=== PATIENT | male | born 1950 | race Caucasian/White ===

== ENCOUNTER 2020-04-18 10:54 | Inpatient (IN) | payer OTHER ==
[~2020-04-18] VITALS: Ht 177.8 cm; Wt 51.8 kg
[2020-04-18 11:25] LABS: BASOPHILS ABSOLUTE AUTO 0.04 K/mm3 (0.00-0.23); BASOPHILS PERCENT AUTO 0 % (0-2); EOSINOPHILS ABSOLUTE AUTO 0.01 K/mm3 (0.00-0.68); EOSINOPHILS PERCENT AUTO 0 % (0-6); Hematocrit 41.3 % (37.0-53.0); Hemoglobin 13.9 g/dL (13.5-17.5); IMMATURE GRAN ABSOLUTE AUTO 0.05 K/mm3 (0.00-0.10); IMMATURE GRAN PERCENT AUTO 0 % (0-1); LYMPHOCYTES ABSOLUTE AUTO 1.12 K/mm3 (0.84-5.20); LYMPHOCYTES PERCENT AUTO 9 % (21-46); MONOCYTES ABSOLUTE AUTO 1.34 K/mm3 (0.16-1.47); MONOCYTES PERCENT AUTO 11 % (4-13); Mean Corpuscular HGB 29.4 pg (26.0-34.0); Mean Corpuscular HGB Conc 33.7 g/dL (31.5-36.5); Mean Corpuscular Volume 87 fL (80-100); Mean Platelet Volume 9.2 fL (9.1-12.4); NEUTROPHILS ABSOLUTE AUTO 9.97 K/mm3 (1.96-9.15); NEUTROPHILS PERCENT AUTO 80 % (41-73); Platelet Count 393 K/mm3 (150-400); RDW Coefficient Variation 14.6 % (11.7-14.2); RDW Standard Deviation 47.2 fL (35.1-46.3); Red Blood Cell Count 4.73 M/mm3 (4.30-5.90); White Blood Cell Count 12.53 K/mm3 (4.00-11.30)
[2020-04-18 11:50] LABS: Alanine Aminotransfer (ALT/SGP 18 U/L (12-78); Albumin, Blood 2.9 g/dL (3.4-5.0); Albumin/Globulin Ratio 0.6 (0.8-1.8); Alk Phos 98 U/L (50-136); Anion Gap 11 mmol/L (6-16); Aspartate Aminotrans (AST/SGOT 19 U/L (12-37); Bilirubin, Total 1.3 mg/dL (0.1-1.0); Blood Urea Nitrogen 17 mg/dL (8-24); Bun/Creatinine Ratio 17.7 (12.0-20.0); CO2, Blood 22 mmol/L (21-32); Chloride, Blood 98 mmol/L (98-108); Creatinine, Blood 0.96 mg/dL (0.60-1.20); Globulin, Blood 4.6 g/dL (2.2-4.0); Glomerular Filtration Rate >60 (60-); Glucose, Blood 99 mg/dL (70-99); Potassium, Blood 3.8 mmol/L (3.5-5.5); Sodium, Blood 131 mmol/L (136-145); Total Protein, Blood 7.5 g/dL (6.4-8.2); Troponin I <0.015 ng/mL (0.000-0.040)
[2020-04-18 12:03] LABS: Influenza A, PCR NEGATIVE (NEGATIVE); Influenza B, PCR NEGATIVE (NEGATIVE); Resp Syncytial Virus, PCR NEGATIVE (NEGATIVE); SARS-Cov-2 (COVID-19) PCR, MMC NEGATIVE (NEGATIVE)
[2020-04-18] MEDS ORDERED: ATOR20 PO (16:31)
[2020-04-18] MEDS ORDERED: THERA-D2000 UNIT PO (16:31)
[2020-04-18] MEDS ORDERED: ALBU90OI INH (16:31)
[2020-04-18] MEDS ORDERED: CYCL10 PO (16:32)
[2020-04-18] MEDS ORDERED: GUAI600T33 PO (16:32)
[2020-04-18] MEDS ORDERED: ENAL10 PO (16:32)
[2020-04-18] MEDS ORDERED: STIOLTO RESPIMAT4 G1 INH (16:33)
[2020-04-18] MEDS ORDERED: ASMANEX HFA13 G4 INH (16:33)
[2020-04-18] MEDS ORDERED: ASPI325 PO (16:34)
[2020-04-18] MEDS ORDERED: TAMS.4ER PO (16:34)
[2020-04-18] MEDS ORDERED: SERT25 PO (16:34)
--- NOTE | 2020-04-18 16:36 | NUR ---
ER ADMIT- PT ARRIVED TO ROOM 309 VIA GURNEY, PT SLID OVER INDEP INTO BED. PT A/OX4. PT REPORTS 5/10 ABD SIDE PAIN THAT INCREASES WITH COUGH AND INSPIRATION. LS DIMINISHED ON 4L, PT REPORTS BASELINE IS 3-4L CONTINUOUS AT HOME. HARSH MOIST NPC NOTED. TELE SR AT 85. NO EDEMA PRESENT. PT REPORTS DIFFICULTY URINATING AT BASELINE AND TAKES FLOMAX. PT ORIENTED TO ROOM AND CALL SYSTEM, CALL LIGHT INR REACH.
[2020-04-18] MEDS ORDERED: LIDOCAINE1 EACH TOP (17:24)
[2020-04-18] MEDS ORDERED: BENADRYL25 MG PO (17:28)
--- NOTE | 2020-04-18 22:00 | NUR ---
ASSUMPTION OF CARE. AOX3, STATES HE IS FEELING A LITTLE BETTER. SOB WITH EXERTION, ON 4LITERS OF O2, SATS IN THE 90%. JUST HAD BREATHING TREATMENT WHEN i ASSESSED. NO CHEST PAIN. MOIST COUGH BUT NON-PRODUCTIVE AT THIS TIME. LUNG SOUNDS DIMINISHED. NO EDEMA. POOR FLUIDS INTAKE WELL. NEED UA BUT HE HAS NOT VOIDED, VERY DEHYDRATED, SKIN TURGER POOR. ALSO AWAITING SPUTUM. IVF INFUSING WELL. URINAL AT BEDSIDE, STATES WEAK IN LEGS. TIRED ALL THE TIME. WILL CONTINUE TO MONITOR. MEDS GIVEN. CALL LIGHT IN REACH.
[2020-04-19 05:22] LABS: BASOPHILS ABSOLUTE AUTO 0.02 K/mm3 (0.00-0.23); BASOPHILS PERCENT AUTO 0 % (0-2); EOSINOPHILS PERCENT AUTO 0 % (0-6); Hematocrit 35.4 % (37.0-53.0); Hemoglobin 11.8 g/dL (13.5-17.5); IMMATURE GRAN ABSOLUTE AUTO 0.08 K/mm3 (0.00-0.10); IMMATURE GRAN PERCENT AUTO 1 % (0-1); LYMPHOCYTES ABSOLUTE AUTO 0.79 K/mm3 (0.84-5.20); LYMPHOCYTES PERCENT AUTO 9 % (21-46); MONOCYTES PERCENT AUTO 9 % (4-13); Mean Corpuscular HGB 29.3 pg (26.0-34.0); Mean Corpuscular HGB Conc 33.3 g/dL (31.5-36.5); Mean Corpuscular Volume 88 fL (80-100); Mean Platelet Volume 9.5 fL (9.1-12.4); NEUTROPHILS ABSOLUTE AUTO 6.84 K/mm3 (1.96-9.15); NEUTROPHILS PERCENT AUTO 80 % (41-73); Platelet Count 296 K/mm3 (150-400); RDW Coefficient Variation 14.8 % (11.7-14.2); Red Blood Cell Count 4.03 M/mm3 (4.30-5.90); White Blood Cell Count 8.53 K/mm3 (4.00-11.30)
[2020-04-19 05:52] LABS: Anion Gap 7 mmol/L (6-16); Blood Urea Nitrogen 16 mg/dL (8-24); Bun/Creatinine Ratio 24.1 (12.0-20.0); CO2, Blood 24 mmol/L (21-32); Calcium, Blood 8.4 mg/dL (8.5-10.1); Chloride, Blood 106 mmol/L (98-108); Creatinine, Blood 0.67 mg/dL (0.60-1.20); Glomerular Filtration Rate >60 (60-); Glucose, Blood 140 mg/dL (70-99); Potassium, Blood 3.7 mmol/L (3.5-5.5); Sodium, Blood 137 mmol/L (136-145)
--- NOTE | 2020-04-19 05:59 | NUR ---
SHIFT SUMMARY: HERNAN HAS BEEN DOING A LITTLE BETTER. SLEPT AT START OF SHIFT AND MOST OF THE NIGHT. LUNG SOUNDS DIMINISHED, SATS >90% ON 4 LITERS. COUGH IS VERY MOIST AND PRODUCTIVE NOW. SPUTUM SENT TO THE LAB. URINE ALSO SENT TO THE LAB. SOB WITH EXERTION. URINE IS DARK YELLOW, NO ODOR. SKIN DRY. VS HAVE BEEN STABLE, AFEBRILE. IVF INFUSING ALL NIGHT. ENCOURAGED DEEP BREATHING. NO OTHER CHAGNES TO REPORT CALL LIGHT IS IN REACH.
[2020-04-19] MEDS ORDERED: ACET325 PO (13:19)
[2020-04-19] MEDS ORDERED: AZIT500 PO (13:20)
[2020-04-19] MEDS ORDERED: CEFP200 PO (13:20)
[2020-04-19] MEDS ORDERED: ONDA4ODT MM (13:21)
[2020-04-19] MEDS ORDERED: PRED20 PO (13:21)
[2020-04-19] MEDS ORDERED: VISBIOME 112.51 EACH PO (13:22)
--- NOTE | 2020-04-19 14:45 | NUR ---
PT DISCHARGED THE PT VERBALIZED UNDERSTANDING OF THE DC INSTRUCTIONS, THE PTS PRESCRIPTIONS WERE FAXED TO THE [facility] REQUESTED, [facility] RE[facility] FOLLOW UP, THEY SAID THEY WOULD CALL THE PT WITH THE APPOINTMENT SCHEDULE, THE PT WAS ON HIS HOME O2 AT THE TIME OF DISCHARGE AT 4L/MIN, PT WAS TRANSFERED VIA WHEELCHAIR, ACCOMPANIED BY THE ESCORT AND HIS , PT WAS A/OX4 AT THE TIME OF DC
== END 2020-04-19 14:56 | disposition home or self-care (01) | DRG 871 ==
LOC: ER 10:54 → MEDS 12:59
PROVIDERS: Emergency Medicine; Nurse Practitioner Acute Care; ADMIT Family Medicine
DX: A41.9 Sepsis, unspecified organism (principal); J18.9 Pneumonia, unspecified organism; J96.21 Acute and chronic respiratory failure with hypoxia; J44.0 Chronic obstructive pulmonary disease with (acute) lower respiratory infection; J44.1 Chronic obstructive pulmonary disease with (acute) exacerbation; I10 Essential (primary) hypertension; N40.0 Benign prostatic hyperplasia without lower urinary tract symptoms; I25.10 Atherosclerotic heart disease of native coronary artery without angina pectoris; F17.210 Nicotine dependence, cigarettes, uncomplicated; Z99.81 Dependence on supplemental oxygen; Z86.73 Personal history of transient ischemic attack (TIA), and cerebral infarction without residual deficits
CPT/HCPCS: 0241U; 36415; 71045; 80048; 80053; 83605; 83880; 84145; 84484; 85025; 87040; 87070; 87077; 87186; 87205; 87449; 93005; 93010; 94640; 94760; 96365; 96366; 96375; 99285-25; A9270; J0456; J0696; J2920; J2930; J7030; J7040; J7050

== ENCOUNTER 2021-03-19 11:44 | Emergency (ER) | payer OTHER ==
[~2021-03-19] VITALS: Ht 175.3 cm; Wt 46.7 kg
[~2021-03-19 11:44] MED LIST: ACET325 PO; ALBU90OI INH; ASMANEX HFA13 G4 INH; ASPI325 PO; ATOR20 PO; AZIT500 PO; BENADRYL25 MG PO; CEFP200 PO; CYCL10 PO; ENAL10 PO; GUAI600T33 PO; LIDOCAINE1 EACH TOP; ONDA4ODT MM; PRED20 PO; SERT25 PO; STIOLTO RESPIMAT4 G1 INH; TAMS.4ER PO; THERA-D2000 UNIT PO; VISBIOME 112.51 EACH PO
[2021-03-19 12:38] LABS: BASOPHILS ABSOLUTE AUTO 0.07 K/mm3 (0.00-0.23); BASOPHILS PERCENT AUTO 1 % (0-2); EOSINOPHILS ABSOLUTE AUTO 0.14 K/mm3 (0.00-0.68); EOSINOPHILS PERCENT AUTO 2 % (0-6); Hematocrit 39.2 % (37.0-53.0); Hemoglobin 13.1 g/dL (13.5-17.5); IMMATURE GRAN ABSOLUTE AUTO 0.03 K/mm3 (0.00-0.10); IMMATURE GRAN PERCENT AUTO 0 % (0-1); LYMPHOCYTES ABSOLUTE AUTO 1.38 K/mm3 (0.84-5.20); LYMPHOCYTES PERCENT AUTO 18 % (21-46); MONOCYTES ABSOLUTE AUTO 0.78 K/mm3 (0.16-1.47); MONOCYTES PERCENT AUTO 10 % (4-13); Mean Corpuscular HGB 29.3 pg (26.0-34.0); Mean Corpuscular HGB Conc 33.4 g/dL (31.5-36.5); Mean Corpuscular Volume 88 fL (80-100); NEUTROPHILS PERCENT AUTO 69 % (41-73); Platelet Count 393 K/mm3 (150-400); RDW Coefficient Variation 13.7 % (11.7-14.2); RDW Standard Deviation 44.5 fL (35.1-46.3); Red Blood Cell Count 4.47 M/mm3 (4.30-5.90)
[2021-03-19 13:11] LABS: Troponin I <0.015 ng/mL (0.000-0.040)
[2021-03-19 13:39] LABS: Alanine Aminotransfer (ALT/SGP 17 U/L (12-78); Albumin, Blood 3.4 g/dL (3.4-5.0); Albumin/Globulin Ratio 0.8 (0.8-1.8); Alk Phos 82 U/L (50-136); Anion Gap 5 mmol/L (6-16); Aspartate Aminotrans (AST/SGOT 15 U/L (12-37); Bilirubin, Total 0.6 mg/dL (0.1-1.0); Blood Urea Nitrogen 9 mg/dL (8-24); Bun/Creatinine Ratio 9.6 (12.0-20.0); CO2, Blood 30 mmol/L (21-32); Calcium, Blood 9.2 mg/dL (8.5-10.1); Chloride, Blood 102 mmol/L (98-108); Creatinine, Blood 0.94 mg/dL (0.60-1.20); Glomerular Filtration Rate >60 (60-); Glucose, Blood 104 mg/dL (70-99); Potassium, Blood 4.1 mmol/L (3.5-5.5); Sodium, Blood 137 mmol/L (136-145); Total Protein, Blood 7.4 g/dL (6.4-8.2)
[2021-03-19 13:53] LABS: Influenza A, PCR NEGATIVE (NEGATIVE); Influenza B, PCR NEGATIVE (NEGATIVE); Resp Syncytial Virus, PCR NEGATIVE (NEGATIVE); SARS-Cov-2 (COVID-19) PCR, MMC NEGATIVE (NEGATIVE)
== END 2021-03-19 14:25 | disposition home or self-care (01) ==
LOC: ER 11:44
PROVIDERS: Emergency Medicine
DX: J44.1 Chronic obstructive pulmonary disease with (acute) exacerbation (principal); Z20.822 Contact with and (suspected) exposure to COVID-19; Z87.891 Personal history of nicotine dependence; Z79.82 Long term (current) use of aspirin; Z79.899 Other long term (current) drug therapy
CPT/HCPCS: 0241U; 71045; 80053; 83880; 84484; 85025; 93005; 93010; 96374; 99285-25; J2930

== ENCOUNTER 2023-03-19 12:37 | Inpatient (IN) | payer OTHER ==
[~2023-03-19] VITALS: Ht 177.8 cm; Wt 45.5 kg
[2023-03-19] MEDS ORDERED: FLUTICASONE-SA1 EAC1 INH (13:10)
[2023-03-19] MEDS ORDERED: ASPI81CH PO (13:11)
[2023-03-19] MEDS ORDERED: NICOTINE LOZENGE2 MG MM (13:11)
[2023-03-19] MEDS ORDERED: GUAI200 PO ×2 (13:12)
[2023-03-19] MEDS ORDERED: Cymbalta20 MG PO (13:12)
[2023-03-19] MEDS ORDERED: Enalapril Maleat5 MG PO (13:13)
[2023-03-19] MEDS ORDERED: ATOR40TA PO (13:13)
[2023-03-19] MEDS ORDERED: EUCERIN ADVANC454 GM TOP (13:14)
[2023-03-19 13:50] LABS: Source, Urine Foley catheter
[2023-03-19 13:55] LABS: Hemoglobin 11.9 g/dL (13.5-17.5); Mean Corpuscular HGB 29.8 pg (26.0-34.0); Mean Corpuscular Volume 88 fL (80-100); Mean Platelet Volume 9.5 fL (9.1-12.4); Platelet Count 578 K/mm3 (150-400); RDW Standard Deviation 47.9 fL (35.1-46.3)
[2023-03-19 13:56] LABS: Appearance, Urine Hazy (Clear); Bilirubin, Urine Neg (Neg); Blood, Urine 5+ (Neg); Color, Urine Red (P-Yellow); Glucose Qualitative, Urine Neg (Neg); Ketones, Urine 1+ (Neg); Leukocyte Esterase, Urine 3+ (Neg); Nitrite, Urine Neg (Neg); Protein, Urine 3+ (Neg); Urobilinogen, Urine NORM (Normal)
[2023-03-19 14:09] LABS: Albumin, Blood 3.2 g/dL (3.4-5.0); Albumin/Globulin Ratio 0.7 (0.8-1.8); Bilirubin, Total 0.9 mg/dL (0.1-1.0); Bun/Creatinine Ratio 22.7 (12.0-20.0); Calcium, Blood 8.9 mg/dL (8.5-10.1); Creatinine, Blood 1.63 mg/dL (0.60-1.20); Globulin, Blood 4.3 g/dL (2.2-4.0); Potassium, Blood 4.4 mmol/L (3.5-5.5); Total Protein, Blood 7.5 g/dL (6.4-8.2)
[2023-03-19 14:12] LABS: Red Blood Cells, Urine 25-50 /hpf (0-2); Squamous Epithelial Cells Rare /hpf (Few); White Blood Cells, Urine TNTC /hpf (0-5)
[2023-03-19 14:13] LABS: Amorphous Mod (0-Heavy); Bacteria Mod /hpf; Mucus Light (0-Heavy)
[2023-03-19 14:27] LABS: BAND PERCENT MAN 14 % (0-8); BASOPHILS PERCENT MAN 0 % (0-2); EOSINOPHILS PERCENT MAN 0 % (0-6); LYMPHOCYTES PERCENT MAN 5 % (21-46); MONOCYTES PERCENT MAN 2 % (4-13); SEG NEUTROPHILS PERCENT MAN 79 % (41-73); TOTAL CELLS COUNTED 100
[2023-03-19 17:19] VITALS: BP 128/82
--- NOTE | 2023-03-19 19:11 | NUR ---
PT ARRIVED TO THE MEDICAL FLOOR FROM THE ER A/OX4 VIA GURNEY. THE PT WAS ABLE TO TRANSFER FROM THE GURNEY TO THE BED WITH MINIMAL ASSISTANCE. PT HAS CONTINUOS BLAADER IRRIGATION RUNNING CATHETER IS DRAINING PINK TINGED URINE. THE PT WAS ORIENTED TO THE ROOM LAYOUT AND CALL SYSTEM. PT DENIED ANY PAIN. PT IS ON 4L/MIN O2 VIA NC. CALL LIGHT IN REACH
[2023-03-19 19:21] VITALS: BP 107/74
[2023-03-20 03:53] VITALS: BP 130/83
--- NOTE | 2023-03-20 06:07 | NUR ---
SHIFT SUMMARY PT A&O X4, CALM AND COOPERATIVE WITH CARE. PT IS ON CONTINUOUS BLADDER IRRIGATION. URINE HAS TURNED FROM PINK TO A MORE CLEAR/YELLOW. SMALL CLOTS STILL PRESENT. PT IS CURRENTLY ON 4L O2 VIA NC WHICH IS THE PT BASELINE. NO ACUTE CHANGES OVERNIGHT. BED KEPT IN LOWEST POSITION WITH CALL LIGHT WITHIN REACH. PT CALLS APPROPRAITELY FOR NEEDS. WILL CONTINUE TO MONITOR.
[2023-03-20 06:10] LABS: BASOPHILS ABSOLUTE AUTO 0.06 K/mm3 (0.00-0.23); BASOPHILS PERCENT AUTO 0 % (0-2); Hematocrit 29.9 % (37.0-53.0); LYMPHOCYTES ABSOLUTE AUTO 0.69 K/mm3 (0.84-5.20); LYMPHOCYTES PERCENT AUTO 3 % (21-46); MONOCYTES ABSOLUTE AUTO 1.53 K/mm3 (0.16-1.47); MONOCYTES PERCENT AUTO 8 % (4-13); Mean Corpuscular HGB 29.4 pg (26.0-34.0); Mean Corpuscular HGB Conc 33.4 g/dL (31.5-36.5); Mean Corpuscular Volume 88 fL (80-100); Mean Platelet Volume 9.5 fL (9.1-12.4); Platelet Count 440 K/mm3 (150-400); RDW Coefficient Variation 14.9 % (11.7-14.2); RDW Standard Deviation 48.5 fL (35.1-46.3); White Blood Cell Count 20.26 K/mm3 (4.00-11.30)
[2023-03-20 06:14] LABS: EOSINOPHILS ABSOLUTE AUTO 0.03 K/mm3 (0.00-0.68); EOSINOPHILS PERCENT AUTO 0 % (0-6); IMMATURE GRAN ABSOLUTE AUTO 0.22 K/mm3 (0.00-0.10); IMMATURE GRAN PERCENT AUTO 1 % (0-1); NEUTROPHILS ABSOLUTE AUTO 17.73 K/mm3 (1.96-9.15); NEUTROPHILS PERCENT AUTO 88 % (41-73)
[2023-03-20 06:22] LABS: International Normalized Ratio 1.09; Prothrombin Time Results 11.4 Sec (9.7-11.5)
[2023-03-20 06:32] LABS: Albumin, Blood 2.6 g/dL (3.4-5.0); Albumin/Globulin Ratio 0.8 (0.8-1.8); Bilirubin, Total 0.8 mg/dL (0.1-1.0); Bun/Creatinine Ratio 22.9 (12.0-20.0); Calcium, Blood 8.3 mg/dL (8.5-10.1); Creatinine, Blood 0.83 mg/dL (0.60-1.20); Globulin, Blood 3.4 g/dL (2.2-4.0); Potassium, Blood 4.3 mmol/L (3.5-5.5)
[2023-03-20 07:21] VITALS: BP 130/78
[2023-03-20 15:40] VITALS: BP 134/81
--- NOTE | 2023-03-20 18:18 | NUR ---
SHIFT SUMMARY PATIENT IS ALERT AND ORIENTED. PATIENT HAS HAD NO ACUTE EVENTS THIS SHIFT. VITAL SIGNS REVIEWED. PATIENT HAS NOT COMPLAINED OF PAIN, NAUSEA, SOB OR VOMITTING THIS SHIFT. PATIENT HAS HAD CONT IRRIGATION MOST OF SHIFT. PATIENT HAS HAD IT STOPPED TEMP BECAUSE OUTPUT HAS BECOME CLEAR. SINCE STOPPING OUTPUT HAS BECOME MORE PINKISH. DR WAS BECOME AWARE AND IRRIGATION RESTARTED, SINCE OUTPUT HAS BECOME MORE CLEAR. PATIENT STILL ON 4L NC OF WHICH IS BASELINE.
[2023-03-20 19:27] VITALS: BP 140/89
--- NOTE | 2023-03-21 01:17 | NUR ---
PT A&OX4, ON 4LNC HX COPD EMYPHSEMA LS DIMINSHED T/O WITH COARSE AT BASES, BS PRESENT PATIENT REPORT BMX1 DAY AGO SMALL DENIES PAIN, DISCOMFORT AND NAUSEA. DENIES CP AT THIS TIME, GENERALIZES PAIN BACK HIP, PT HAS CONTINUOUS IRRIGATION RUNNING DRAINING PINK W/O CLOTS PRESENT REPORTS MILD URTHEA DISCOMFORT FROM JULIO. 1200 IN/ 1450 OUT. PT RESTING COMFORTABLY CALL LIGHT WITHIN REACH AND CALLS APPROPERIATELY FOR ASSISTANCE. WILL CONTINUE TO MONITOR.
[2023-03-21 03:08] VITALS: BP 147/86
[2023-03-21 05:02] LABS: BASOPHILS ABSOLUTE AUTO 0.07 K/mm3 (0.00-0.23); BASOPHILS PERCENT AUTO 1 % (0-2); EOSINOPHILS ABSOLUTE AUTO 0.23 K/mm3 (0.00-0.68); EOSINOPHILS PERCENT AUTO 2 % (0-6); Hemoglobin 9.9 g/dL (13.5-17.5); IMMATURE GRAN ABSOLUTE AUTO 0.11 K/mm3 (0.00-0.10); IMMATURE GRAN PERCENT AUTO 1 % (0-1); LYMPHOCYTES ABSOLUTE AUTO 1.13 K/mm3 (0.84-5.20); LYMPHOCYTES PERCENT AUTO 8 % (21-46); MONOCYTES ABSOLUTE AUTO 1.12 K/mm3 (0.16-1.47); MONOCYTES PERCENT AUTO 8 % (4-13); Mean Corpuscular HGB 29.3 pg (26.0-34.0); Mean Corpuscular HGB Conc 34.1 g/dL (31.5-36.5); Mean Corpuscular Volume 86 fL (80-100); Mean Platelet Volume 9.5 fL (9.1-12.4); NEUTROPHILS ABSOLUTE AUTO 11.19 K/mm3 (1.96-9.15); NEUTROPHILS PERCENT AUTO 81 % (41-73); Platelet Count 449 K/mm3 (150-400); RDW Coefficient Variation 14.6 % (11.7-14.2); RDW Standard Deviation 46.2 fL (35.1-46.3); Red Blood Cell Count 3.38 M/mm3 (4.30-5.90); White Blood Cell Count 13.85 K/mm3 (4.00-11.30)
[2023-03-21 05:31] LABS: Bun/Creatinine Ratio 18.7 (12.0-20.0); Calcium, Blood 8.2 mg/dL (8.5-10.1); Creatinine, Blood 0.7 mg/dL (0.60-1.20); Potassium, Blood 3.7 mmol/L (3.5-5.5)
--- NOTE | 2023-03-21 05:32 | NUR ---
Rn summary: Patient is pleasant and cooperative. Sleeps in small snatches due to CBI and having to empty ivey bag often. Urine continues to be pale blush. No clots seen. Pt continues on 4 liters O2 which is his basesline. Pt denies pain . Call light in reach. Continue to monitor.
[2023-03-21 07:39] VITALS: BP 140/94
--- NOTE | 2023-03-21 07:39 | NUR ---
Care of patient was assumed at 0345. Patient is on a continuous bladder irrigation. Unsure of total actual urine output. Urine is clear this am, was lightly blush pink earlier. Best guess on urine output for this shift is 1675cc. report to on coming shift. day shift started with 1 full bag of 3000cc.
--- NOTE | 2023-03-21 14:19 | NUR ---
SHIFT SUMMARY PT AWAKE DURING SHIFT REPORT, RESTING QUIETLY WATCHING TV. C/B/I IN PROCESS AT START OF SHIFT, RUNNING CLEAR YELLOW. C/B/I DECREASED TO SLOW DRIP WITH URINE TURNING LIGHT PINK. C/B/I INCREASED SLIGHTLY WITH URINE CLEARING IMMEDIATELY. DR ZHANG IN TO SEE PT AND DISCUSS PLAN OF CARE. ADDITIONAL PROSTATE MEDICATIONS ADDED. DR ZHANG DISCUSSED OPTIONS OF REMOVING OR LEAVING IN JULIO CATHETER AND F/U WITH UROLOGY OUTPT. DR ZHANG TO REVIEW CHART AND F/U WITH PT ON PLAN FOR DISCHARGE. UROGRAM ORDERED AND LATER COMPLETED JUST BEFORE LUNCH. PT DECLINED SHOWER, BUT WILLING TO GIVE BED BATH. BED LINENS CHANGED. PT ABLE TO WORK WITH THERAPY AND GET UP TO CHAIR. DENIED FURTHER NEEDS AT THIS TIME. CALL LT IN REACH.
[2023-03-21 16:05] VITALS: BP 150/93
[2023-03-21 19:16] VITALS: BP 153/96
--- NOTE | 2023-03-22 04:21 | NUR ---
SHIFT SUMMARY 72 YR M ADMITTED ON 03/19/23. FULL CODE. NO ACUTE CHANGES THIS SHIFT. BLADDER IRRIGATION HAS BEEN OFF FOR THIS SHIFT AND JULIO IS DRAINING WELL W/ LIGHT FRANSISCO COLORED URINE. PT HAS HAD NO C/O PAIN OR DISCOMFORT, OR FEELING THAT HIS BLADDER IS NOT DRAINING. HE STATES HE CAN TELL WHEN THE JULIO IS BLOCKED OR PLUGGED BECAUSE HE GETS THE FEELING OF NOT BEING ABLE TO URINATE. THAT HAS NOT HAPPENED THIS SHIFT. PT APPEARS TO HAVE RESTED COMFORTABLY FOR MOST OF THIS SHIFT.
[2023-03-22 04:49] VITALS: BP 123/90
[2023-03-22 05:24] LABS: BASOPHILS ABSOLUTE AUTO 0.07 K/mm3 (0.00-0.23); BASOPHILS PERCENT AUTO 1 % (0-2); EOSINOPHILS ABSOLUTE AUTO 0.13 K/mm3 (0.00-0.68); EOSINOPHILS PERCENT AUTO 1 % (0-6); Hematocrit 31.8 % (37.0-53.0); Hemoglobin 10.8 g/dL (13.5-17.5); IMMATURE GRAN ABSOLUTE AUTO 0.11 K/mm3 (0.00-0.10); IMMATURE GRAN PERCENT AUTO 1 % (0-1); LYMPHOCYTES ABSOLUTE AUTO 0.82 K/mm3 (0.84-5.20); LYMPHOCYTES PERCENT AUTO 6 % (21-46); MONOCYTES PERCENT AUTO 12 % (4-13); Mean Corpuscular Volume 86 fL (80-100); Mean Platelet Volume 9.2 fL (9.1-12.4); NEUTROPHILS PERCENT AUTO 80 % (41-73); Platelet Count 483 K/mm3 (150-400); RDW Coefficient Variation 14.5 % (11.7-14.2); RDW Standard Deviation 45.3 fL (35.1-46.3); Red Blood Cell Count 3.72 M/mm3 (4.30-5.90); White Blood Cell Count 13.83 K/mm3 (4.00-11.30)
[2023-03-22 07:39] VITALS: BP 130/89
--- NOTE | 2023-03-22 11:43 | NUR ---
PHYSICIAN CONTACT CONTINUOUS BLADDER IRRIGATION RESTARTED PER DR GUTIERREZ. EDUCATION TO PATIENT AND SPOUSE VERBALLY GIVEN, BOTH VERBALIZED UNDERSTANDING. CARES ONGOING
[2023-03-22 15:33] VITALS: BP 143/94
--- NOTE | 2023-03-22 16:55 | NUR ---
SHIFT SUMMARY PATIENT'S URINE CONTINUES TO BE RED COLORED, DR GUTIERREZ ORDERED CONTINUOUS BLADDER IRRIGATION TO BE RESTARTED. URINE LIGHTENED FRANSISCO WITH THIS, ABLE TO VISUALIZE CLOTS IN TUBING, NO C/O PAIN RELATED. C/O GENERALIZED ACHES THIS AM, GIVEN APAP WITH GOOD RELIEF. WAS GIVEN NUMBER TO PATIENT [employer] FOR MISSING DENTURES. HAD BM THIS SHIFT, DESAT INTO LOW 80'S WITH MOVEMENT TO COMMODE, TOOK ABOUT 4 MINUTES PURSED LIP BREATHING TO RECOVER. CARES ONGOING.
[2023-03-22 19:36] VITALS: BP 158/92
[2023-03-23 02:56] VITALS: BP 133/88
[2023-03-23 05:13] LABS: Hematocrit 31.4 % (37.0-53.0); Hemoglobin 10.9 g/dL (13.5-17.5); Mean Corpuscular HGB 29.4 pg (26.0-34.0); Mean Corpuscular HGB Conc 34.7 g/dL (31.5-36.5); Mean Corpuscular Volume 85 fL (80-100); Mean Platelet Volume 8.6 fL (9.1-12.4); Platelet Count 513 K/mm3 (150-400); RDW Coefficient Variation 14.6 % (11.7-14.2); Red Blood Cell Count 3.71 M/mm3 (4.30-5.90); White Blood Cell Count 15.49 K/mm3 (4.00-11.30)
--- NOTE | 2023-03-23 05:28 | NUR ---
SHIFT SUMMARY 72 YR M ADMITTED ON 03/19/23. FULL CODE. NO ACUTE CHANGES THIS SHIFT. BLADDER IRRIGATION HAS BEEN RUNNING ALL SHIFT AND URINE COLOR HAS LIGHTENED UP SIGNIFICANTLY. PT C/O PAIN IN HIS GROIN AREA AND HIS LEFT FLANK AND WAS GIVEN TYLENOL PER EMAR. HE HAS SLEPT INTERMITTENTLY THROUGHOUT THE SHIFT. HE IS PLEASANT AND COOPERATIVE WITH CARE.
[2023-03-23 06:02] LABS: Bun/Creatinine Ratio 16.7 (12.0-20.0); Calcium, Blood 8.9 mg/dL (8.5-10.1); Creatinine, Blood 0.66 mg/dL (0.60-1.20); Percent Saturation 5.7 % (20.0-50.0); Potassium, Blood 3.9 mmol/L (3.5-5.5)
[2023-03-23 08:01] VITALS: BP 143/87
[2023-03-23 15:00] VITALS: BP 126/78
--- NOTE | 2023-03-23 17:31 | NUR ---
SHIFT SUMMARY PATIENT C/O LEFT FLANK AND MEATUS PAIN THIS SHIFT, GIVEN APAP WITH GOOD RELIEF, DECLINED OXYCODONE. CONTINUES TO RECEIVE BLADDER IRRIGATION, DRAINING PINK URINE, VISUALIZED AT LEAST ONE SMALL CLOT. IV IRON ADMINISTERED, TOLERATED WELL. ABLE TO MOVE INDEPENDENTLY IN BED FOR PRESSURE RELIEF. ON 4 LITERS NASAL CANNULA PER BASELINE. CARES ONGOING
[2023-03-23 19:46] VITALS: BP 142/84
[2023-03-24 03:18] VITALS: BP 143/89
--- NOTE | 2023-03-24 05:00 | NUR ---
SHIFT SUMMARY. PATIENT IS AOX4. ABLE TO MAKE NEEDS KNOWN AND CALLS APPROPRIATELY. PATINT C/O PAIN-PAIN ASSESSED AND MEDICATED PER EMAR. PATIENT IS PLEASANT AND COOPERATIVE WITH CARE. PATIENT INDEPENDENTLY MOVES AND READJUSTS HIMSELF IN BED. PATIENT HAS JULIO IN PLACE THAT IS PATENT. PATIENT IS CURRENTLY RECEIVING CONTINUOUS BLADDER IRRIGATION. PATIENT HAVING SOME DISCOMFORT AND SLIGHT SPASMS TO BLADDER-MANUAL BLADDER IRRIGATION DONE-MODERATE BLOOD CLOT REMOVED; URINE DARK PINK FOLLOWING MANUAL BLADDER IRRIGATION. URINE NOW IS LIGHT PINK. PATIENT IS ON 4 L'S VIA NASAL CANNULA SATTING IN THE LOW 90'S. BED IS LOCKED IN THE LOWEST POSITION WITH CALL LIGHT IN REACH. NO S/S OF DISTRESS NOTED AT THIS TIME.
[2023-03-24 07:00] VITALS: BP 124/84
[2023-03-24 08:13] LABS: BASOPHILS ABSOLUTE AUTO 0.08 K/mm3 (0.00-0.23); BASOPHILS PERCENT AUTO 1 % (0-2); EOSINOPHILS ABSOLUTE AUTO 0.28 K/mm3 (0.00-0.68); EOSINOPHILS PERCENT AUTO 2 % (0-6); Hematocrit 32.3 % (37.0-53.0); Hemoglobin 10.9 g/dL (13.5-17.5); IMMATURE GRAN ABSOLUTE AUTO 0.14 K/mm3 (0.00-0.10); IMMATURE GRAN PERCENT AUTO 1 % (0-1); LYMPHOCYTES ABSOLUTE AUTO 1.29 K/mm3 (0.84-5.20); LYMPHOCYTES PERCENT AUTO 9 % (21-46); MONOCYTES PERCENT AUTO 18 % (4-13); Mean Corpuscular HGB 29.2 pg (26.0-34.0); Mean Corpuscular HGB Conc 33.7 g/dL (31.5-36.5); Mean Corpuscular Volume 87 fL (80-100); NEUTROPHILS ABSOLUTE AUTO 9.57 K/mm3 (1.96-9.15); NEUTROPHILS PERCENT AUTO 69 % (41-73); Platelet Count 607 K/mm3 (150-400); RDW Standard Deviation 47.8 fL (35.1-46.3); Red Blood Cell Count 3.73 M/mm3 (4.30-5.90); White Blood Cell Count 13.86 K/mm3 (4.00-11.30)
[2023-03-24 08:24] LABS: Bun/Creatinine Ratio 21.5 (12.0-20.0); Calcium, Blood 8.8 mg/dL (8.5-10.1); Creatinine, Blood 0.7 mg/dL (0.60-1.20); Potassium, Blood 4.4 mmol/L (3.5-5.5)
[2023-03-24 16:05] VITALS: BP 150/94
[2023-03-24 18:37] VITALS: BP 152/92
--- NOTE | 2023-03-24 18:43 | NUR ---
SHIFT SUMMARY: PT A/O X 4, PLEASANT AND COOPERATIVE, ONE ASSIST TO BSC. PT IS ON 4 LPM VIA NC AT HIS BASELINE NEEDS. PT CONTINUES TO EXPERIENCE BLADDER SPASMS, MEDICATIONS PER MAR EFFECTIVE IN MANAGING PAIN AT THIS TIME. PT CONTINUES TO HAVE BLOOD IN URINE, MORE RED THAN TOAY. SMALL BLOOD CLOTS HAVE BEEN OBSERVED TO PASS. NO NEED TO INCREASE IRRIGATION RATE OR NEED TO FLUSH CATHETER TODAY. PT STARTED ON IV FLUIDS FOR TACHYCARDIA. HR AT END OF SHIFT ON MONITOR WAS 101 WHICH IS IMPROVED FROM 120'S THIS AM. PT HAS NOT HAD COMPLAINTS OF CP OR PRESSURE.
[2023-03-25 04:07] VITALS: BP 164/76
--- NOTE | 2023-03-25 06:29 | NUR ---
SHIFT SUMMARY: PT IS ADMITTED FOR ACUTE RENAL INSUFFICIENCY AND IS A FULL CODE. IS ALERT AND ABLE TO MAKE NEEDS KNOWN. ADLs HAVE BEEN 1P THROUGHOUT SHIFT. ON 4L O2 AT BASELINE. WAS GIVEN PRN PAIN MANAGEMENT X1 APAP X1. FOLLEY IN PLACE WITH BLADDER IRRIGATION IN PLACE. URINE COLOR IS VERY LIGHT YELLOW WITH THE OCCASIONAL SMALL CLOT. TOWARDS THE END OF SHIFT URINE COLOR DID START TO BECOME DARKER. ABOUT 0330 SPO2 STARTED DROPPING TO LOW 80s HIGH 70s. THEN RETURN TO LOW 90s AFTER A COUPLE DEEP BREATHS. RT NOTIFIED THEY GAVE A BREATHING TX INCREASED OS TO 7L AND CHANGED TO A VENTI MASK. RT REPORTED THEY SEEN SPO2 DROP DOWN INTO THE LOW 60s FOR A BRIEF SECOND DURING THE TX. SPO2 CURRENTLY AROUND 94%. PULSE IS AROUND 124. TEMP NOTED TO BE 100.9 AND WAS GIVEN APAP ABOUT 10 MIN BEFORE TEMP WAS TAKEN.
[2023-03-25 07:26] VITALS: BP 124/78
[2023-03-25 07:52] LABS: BASOPHILS ABSOLUTE AUTO 0.09 K/mm3 (0.00-0.23); BASOPHILS PERCENT AUTO 1 % (0-2); EOSINOPHILS ABSOLUTE AUTO 0.24 K/mm3 (0.00-0.68); EOSINOPHILS PERCENT AUTO 2 % (0-6); Hemoglobin 10.5 g/dL (13.5-17.5); IMMATURE GRAN ABSOLUTE AUTO 0.19 K/mm3 (0.00-0.10); IMMATURE GRAN PERCENT AUTO 1 % (0-1); LYMPHOCYTES ABSOLUTE AUTO 0.98 K/mm3 (0.84-5.20); LYMPHOCYTES PERCENT AUTO 6 % (21-46); MONOCYTES ABSOLUTE AUTO 2.51 K/mm3 (0.16-1.47); MONOCYTES PERCENT AUTO 16 % (4-13); Mean Corpuscular HGB 29.3 pg (26.0-34.0); Mean Corpuscular HGB Conc 33.9 g/dL (31.5-36.5); Mean Corpuscular Volume 87 fL (80-100); Mean Platelet Volume 8.5 fL (9.1-12.4); NEUTROPHILS PERCENT AUTO 74 % (41-73); Platelet Count 559 K/mm3 (150-400); RDW Standard Deviation 48.2 fL (35.1-46.3); Red Blood Cell Count 3.58 M/mm3 (4.30-5.90); White Blood Cell Count 15.51 K/mm3 (4.00-11.30)
[2023-03-25 08:26] LABS: Bun/Creatinine Ratio 18.2 (12.0-20.0); Calcium, Blood 8.8 mg/dL (8.5-10.1); Creatinine, Blood 0.66 mg/dL (0.60-1.20)
[2023-03-25 15:11] VITALS: BP 112/70
--- NOTE | 2023-03-25 18:58 | NUR ---
SHIFT SUMMARY: PT A/O X 4, STANDBY ASSIST TO BSC DUE TO SEVERAL LINES TO MANAGE. PLEASANT AND COOPERATIVE WITH CARE. PT URINE CLEARED UP THIS MORNING AND WAS YELLOW. BLADDER IRRIGATION PLACED ON HOLD AROUND 1030 THIS AM. EVENTUALLY URINE DARKENED TO A DARK PINKISH YELLOW COLOR. PT HAS NOT PASSED ANY CLOTS AND CONTINUES TO VOID THROUGH CATHETER. PT PAIN MANAGED WITH TYLENOL THROUGHOUT THE DAY. PT REPORTS LESS BLADDER SPASMS. PT TOLERATING IV ABX. GOOD INTAKE OF FOOD AND WATER. HAS HAD HR IN THE LOW 100S. CONTINUES TO BE ON 4 LPM VIA NC. PT DOES DESAT TO 70'S IF HE TALKS TOO LONG. PT REPORTS THIS HAPPENS PRIOR TO HOSPITALIZATION. PT INSTRUCTED IN PURSED LIP BREATHING WHICH WAS IMMEDIATELY EFFECTIVE.
[2023-03-25 19:47] VITALS: BP 113/77
[2023-03-26 03:38] VITALS: BP 114/80
[2023-03-26 05:59] LABS: BASOPHILS ABSOLUTE AUTO 0.08 K/mm3 (0.00-0.23); BASOPHILS PERCENT AUTO 1 % (0-2); EOSINOPHILS ABSOLUTE AUTO 0.52 K/mm3 (0.00-0.68); EOSINOPHILS PERCENT AUTO 5 % (0-6); Hematocrit 28.9 % (37.0-53.0); Hemoglobin 9.5 g/dL (13.5-17.5); IMMATURE GRAN ABSOLUTE AUTO 0.32 K/mm3 (0.00-0.10); IMMATURE GRAN PERCENT AUTO 3 % (0-1); LYMPHOCYTES ABSOLUTE AUTO 1.35 K/mm3 (0.84-5.20); LYMPHOCYTES PERCENT AUTO 12 % (21-46); MONOCYTES ABSOLUTE AUTO 1.79 K/mm3 (0.16-1.47); MONOCYTES PERCENT AUTO 15 % (4-13); Mean Corpuscular HGB 28.6 pg (26.0-34.0); Mean Corpuscular HGB Conc 32.9 g/dL (31.5-36.5); Mean Corpuscular Volume 87 fL (80-100); Mean Platelet Volume 8.7 fL (9.1-12.4); NEUTROPHILS PERCENT AUTO 65 % (41-73); Platelet Count 541 K/mm3 (150-400); RDW Coefficient Variation 15.3 % (11.7-14.2); RDW Standard Deviation 48.8 fL (35.1-46.3); Red Blood Cell Count 3.32 M/mm3 (4.30-5.90); White Blood Cell Count 11.66 K/mm3 (4.00-11.30)
[2023-03-26 06:29] LABS: Bun/Creatinine Ratio 20.3 (12.0-20.0); Calcium, Blood 8.5 mg/dL (8.5-10.1); Creatinine, Blood 0.69 mg/dL (0.60-1.20)
[2023-03-26 08:06] VITALS: BP 109/83
[2023-03-26 15:49] VITALS: BP 125/83
--- NOTE | 2023-03-26 17:33 | NUR ---
PT PLEASANT TODAY. NO C.O. PAIN TODAY. URINE CONTINUES LITE RED, CLEARING SOME. MEDICAL RECORDS ORDERED AND RECEIVED , HANDED TO DR IRIZARRY. LUNGS CONTINUE TO BE DIM T/O. NO OTHER CONCERNS NOTED. BED IN LOW POSITION, CALL LITE IN REACH, CALLS APPROP
--- NOTE | 2023-03-26 19:12 | NUR ---
IN THIS MIDDAY, ORDERS TO D/C CONT BIOX.
[2023-03-26 21:11] VITALS: BP 121/80
[2023-03-27 05:58] VITALS: BP 125/74
[2023-03-27 06:07] LABS: BASOPHILS PERCENT AUTO 1 % (0-2); EOSINOPHILS ABSOLUTE AUTO 0.45 K/mm3 (0.00-0.68); EOSINOPHILS PERCENT AUTO 4 % (0-6); Hematocrit 28.5 % (37.0-53.0); Hemoglobin 9.4 g/dL (13.5-17.5); IMMATURE GRAN ABSOLUTE AUTO 0.32 K/mm3 (0.00-0.10); IMMATURE GRAN PERCENT AUTO 3 % (0-1); LYMPHOCYTES PERCENT AUTO 12 % (21-46); MONOCYTES ABSOLUTE AUTO 1.47 K/mm3 (0.16-1.47); MONOCYTES PERCENT AUTO 12 % (4-13); Mean Corpuscular HGB 28.7 pg (26.0-34.0); Mean Corpuscular Volume 87 fL (80-100); Mean Platelet Volume 8.8 fL (9.1-12.4); NEUTROPHILS PERCENT AUTO 69 % (41-73); Platelet Count 552 K/mm3 (150-400); RDW Coefficient Variation 15.4 % (11.7-14.2); RDW Standard Deviation 48.5 fL (35.1-46.3); Red Blood Cell Count 3.27 M/mm3 (4.30-5.90); White Blood Cell Count 11.94 K/mm3 (4.00-11.30)
[2023-03-27 06:22] LABS: Bun/Creatinine Ratio 14.6 (12.0-20.0); Calcium, Blood 8.7 mg/dL (8.5-10.1); Creatinine, Blood 0.82 mg/dL (0.60-1.20); Potassium, Blood 4.4 mmol/L (3.5-5.5)
[2023-03-27 07:49] VITALS: BP 111/71
[2023-03-27 11:45] VITALS: BP 115/72
[2023-03-27] MEDS ORDERED: VISBIOME 112.51 EACH PO (13:30)
[2023-03-27] MEDS ORDERED: FINA5 PO (13:31)
[2023-03-27] MEDS ORDERED: AZIT500 PO (13:31)
--- NOTE | 2023-03-27 16:07 | NUR ---
EDUCATED PT ON USE OF JULIO CATHETER. ON USE OF FLUSHING FOR CLOTS. ASSISTED WITH SUPPLIES NEEDED. PT AND VERBALLY STATES UNDERSTANDING OF PROCESS AND WHEN NEEDED. HAD PT AND SPOUSE PERFORM PROCEDURE TO FLUSH. EDUCATED ON CLEAN PROCESS, USING ALCOHOL SWABS AT PORT FOR 30 SECONDS. USING A NEW CLEAN SYRINGE EVERY TIME NEEDS FLUSHING. ONLY USING THE STERILE WATER SUPPLIED. PT AND SPOUSE BOTH STATE ARE ABLE TO PERFORM IF NEEDED.
[2023-03-27] MEDS ORDERED: FERSU300 PO (16:15)
[2023-03-27] MEDS ORDERED: Acerola C500 MG PO (16:15)
[2023-03-27] MEDS ORDERED: DOCU100 PO (16:15)
--- NOTE | 2023-03-27 17:05 | NUR ---
IV PULLED INTACT, DISCHARGE REVIEWED WITH PT AND SPOUSE. NO TELE. PT VERBALIZED UNDERSTANDING MED AND INST. PT WHEELED TO [facility] AT 1707
== END 2023-03-27 17:04 | disposition home health service (06) | DRG 871 ==
LOC: ER 12:37 → MEDS 16:27 → ENPENDDIS 03-27 13:00 → MEDS 03-27 17:04
PROVIDERS: Internal Medicine; Student in an Organized Health Care Education/Training Program; ADMIT Student in an Organized Health Care Education/Training Program
PROC: 3E03329 Introduction of Other Anti-infective into Peripheral Vein, Percutaneous Approach (ICD-10-PCS; principal; 2023-03-19)
PROC: 0T9B70Z Drainage of Bladder with Drainage Device, Via Natural or Artificial Opening (ICD-10-PCS; 2023-03-19)
DX: A41.01 Sepsis due to Methicillin susceptible Staphylococcus aureus (principal); J18.9 Pneumonia, unspecified organism; J96.21 Acute and chronic respiratory failure with hypoxia; N39.0 Urinary tract infection, site not specified; E87.1 Hypo-osmolality and hyponatremia; E87.20 Acidosis, unspecified; N17.9 Acute kidney failure, unspecified; R64 Cachexia; E44.0 Moderate protein-calorie malnutrition; Z68.1 Body mass index [BMI] 19.9 or less, adult; J44.0 Chronic obstructive pulmonary disease with (acute) lower respiratory infection; R65.20 Severe sepsis without septic shock; I25.10 Atherosclerotic heart disease of native coronary artery without angina pectoris; E78.5 Hyperlipidemia, unspecified; F10.21 Alcohol dependence, in remission; N40.1 Benign prostatic hyperplasia with lower urinary tract symptoms; R33.8 Other retention of urine; I12.9 Hypertensive chronic kidney disease with stage 1 through stage 4 chronic kidney disease, or unspecified chronic kidney disease; K74.60 Unspecified cirrhosis of liver; N18.9 Chronic kidney disease, unspecified; R31.0 Gross hematuria; I73.9 Peripheral vascular disease, unspecified; E86.0 Dehydration; D50.9 Iron deficiency anemia, unspecified; N20.0 Calculus of kidney; B19.20 Unspecified viral hepatitis C without hepatic coma; D63.1 Anemia in chronic kidney disease; D75.839 Thrombocytosis, unspecified; F32.A Depression, unspecified; F41.9 Anxiety disorder, unspecified; Z98.890 Other specified postprocedural states; Z87.891 Personal history of nicotine dependence; Z11.52 Encounter for screening for COVID-19; Z86.73 Personal history of transient ischemic attack (TIA), and cerebral infarction without residual deficits; Z79.82 Long term (current) use of aspirin; Z79.899 Other long term (current) drug therapy; Z99.81 Dependence on supplemental oxygen
CPT/HCPCS: 36415; 51700; 71045; 71046; 74178; 76770; 80048; 80053; 81001; 82570; 82607; 82728; 82746; 83540; 83550; 83605; 83735; 83880; 83935; 84145; 84153; 84300; 85025; 85027; 85610; 87040; 87077; 87086; 87147; 87186; 93005; 93010; 94640; 94664; 94760; 94762; 96361-59; 96365-59; 97110; 97162; 97530; 99285-25; A9270; J0456; J0690; J0696; J1644; J2916; J7030; J7050; Q9967